=== PATIENT | female | born 1970 | race Hispanic/Latino ===

== ENCOUNTER 2023-06-20 13:02 | Emergency (ER) | payer OTHER, SELFPAY ==
[2023-06-20 13:07] VITALS: BP 137/88
--- NOTE | 2023-06-20 15:44 | ED.GENMED ---
History of Present Illness
General
Chief Complaint: Cough
Source: patient
Exam Limitations: none
Time Seen by Provider: 06/20/23 14:22
Nursing documentation reviewed up to this point in time: agreed with
Travel History
Have you had any contact with someone who has COVID-19?: No
Do you have any symptoms of coronavirus? Fever > 100 degrees, chills, cough, shortness of breath, sore throat, loss of taste or smell, muscle aches, or headache?: No
History of Present Illness
History of Present Illness:
53-year-old female with a past medical history of asthma, hypertension, migraine who presents to the emergency department for evaluation of worsening cough, rib pain, shortness of breath. Patient reports onset of symptoms 3 weeks ago she says she
had a mild cold with a cough and nasal congestion. Over the next 2 weeks she started to develop some wheezing and worsening cough. She was seen in urgent care last week and was prescribed cefuroxime 500 mg twice daily for pneumonia she says she
was also started on a Medrol Dosepak and told to take her albuterol as needed. She says that she finishes these medications tomorrow and yet despite this her cough has been worsening now productive of whitish sputum. She has had fever and chills.
She says she is having worsening shortness of breath. She says she started to have some pain in her right ribs and she is having severe coughing fits to the point of nearly passing out. Decided to come to the emergency room with symptoms not
improving. She denies any abdominal pain or diarrhea, had 1 episode of posttussive emesis but no consistent nausea or vomiting. She denies any other complaints today.
Past History
Past History
ED Past Medical History: Asthma, HTN and Other (migraines)
ED Past Surgical History: Gynecological (ectopic , D&C) and Other (oral surgery)
Social History
Tobacco: Non-smoker
Alcohol: Occasional
Drug: None
Personal:
Living: with family
Employment: Employed
Review of Systems
Review of Systems
All Other Systems: ROS reviewed and negative except as documented in HPI and ROS
Constitutional: Reports fever, fatigue and chills
EENT: Reports sore throat and runny nose
Respiratory: Reports cough and trouble breathing
Cardiac: Reports chest pain; Denies diaphoresis or palpitations
ABD/GI: Reports vomiting (1 episode of posttussive emesis); Denies abdominal pain, nausea or diarrhea
: Denies flank pain
Musculoskeletal: Reports muscle pain (Myalgias); Denies neck pain
Neurological: Denies headache, weakness or numbness
Phy Exam
Physical Exam
Physical Exam:
General: Awake, alert, oriented x3; no acute distress
Head: Normocephalic, atraumatic
Eyes: Conjunctiva normal, sclera anicteric
Throat: Airway intact, handling secretions
Neck: Trachea midline, supple without meningismus
Lungs: Clear to auscultation bilaterally, no wheezing, rales, rhonchi; frequent coughing
Heart: Regular rate and rhythm, no murmurs, gallops, or rubs; reproducible tenderness right posterior ribs
Abd: Soft, non distended, nontender
Neuro: Cranial nerves grossly intact, speech fluid
Skin: no rash
Extremities: No edema in extremities, warm and well-perfused
Scores
Heart Failure Risk
Heart Failure Risk Score: Not Applicable
Heart Score for Chest Pain Patients
STEMI patient?: Not applicable
Withdrawal Assessment of Alcohol
Withdrawal Assessment Completed?: Not applicable
Course
Orders/Labs/Results
Orders:
Orders
06/20/23 15:00
COVID-19 Antigen Urgent
Source: Nasal Swab
Complete Blood Count/With Diff Urgent
Comprehensive Metabolic Panel Urgent
Influenza A+B Rapid Molecular Urgent
BONNIE Source: Nasal Swab
Specimen Description:
CR Chest - 2 Views Urgent
Comment:
Reason For Exam: worsening cough
06/20/23 15:07
Ipratropium/Albuterol Sulfate [Duoneb] 3 ml INH R NOW STA
Vital Signs
Initial and Last Documented VS:
Initial Vital Signs
Temp Pulse Resp BP Pulse Ox
36.8 C 91 18 137/88 98
06/20/23 13:07 06/20/23 13:07 06/20/23 13:07 06/20/23 13:07 06/20/23 13:07
Last Documented Vital Signs
Temp Pulse Resp BP Pulse Ox
36.8 C 91 18 137/88 98
06/20/23 13:07 06/20/23 13:07 06/20/23 13:07 06/20/23 13:07 06/20/23 13:07
MDM/Problems Addressed
Differential Diagnosis Includes:
Viral syndrome including influenza or COVID, pneumonia, bronchitis, asthma exacerbation
MDM/Problems Addressed:
53-year-old female presents with worsening cough, shortness of breath, right rib pain over the past 3 weeks�was diagnosed with pneumonia at urgent care started on antibiotics and steroids a week ago but symptoms not improving. Fortunately her vital
signs are all normal here including a normal pulse ox 98% on room air. Her physical exam is as above. Plan to place an IV check labs including a CBC and a CMP; will check viral swabs. Check a chest x-ray. Check an EKG. Given asthma history we
will treat with a DuoNeb although no marked wheezing on exam. Monitor closely reassess after the above.
Chronic conditions affecting care:
Asthma complicates her respiratory illness
*Radiology
Radiology exam reviewed: preliminary read by ED provider and radiology read reviewed
*Pulse Oximetry
Patient hypoxic: no
*Critical Care Note
Total Time (30-74mins, 75-104mins- exclusive of procedures): Not Applicable
Data Reviewed
Source: patient
ED Attending Note
-
Portions of this chart may have been created with voice recognition software.� Occasional wrong word or��sound alike� substitutions may have occurred due to the inherent limitations of voice recognition software.
Discharge Plan
Departure
Prescriptions:
No Action
lisinopril 20 mg Tablet
20 mg PO HS
albuterol sulfate 90 mcg/actuation Hfa Aerosol Inhaler
2 puff INHALATION PRN PRN (Reason: SOB)
Referrals:
KHUSHBOO ALFARO MD [Family Provider] -
[2023-06-20 15:56] VITALS: BMI 34.6
[2023-06-20 15:59] LABS: % Basophils 0.8 % (0-2); % Eosinophils 2.4 % (0-6); % Immature Granulocytes 0.4 % (0-0.5); % Lymphocytes 34.4 % (20.5-51.1); % Monocytes 8.4 % (1.7-9.3); % Neutrophils 53.6 % (42.2-75.2); Absolute Basophils 0.1 10^3/uL (0-0.2); Absolute Eosinophils 0.2 10^3/uL (0-0.7); Absolute Lymphocytes 2.6 10^3/uL (1.2-3.4); Absolute Monocytes 0.6 10^3/uL (0.1-0.6); Hematocrit 41.9 % (37.0-47.0); Hemoglobin 14.7 g/dL (12.0-16.0); Mean Corp Hgb Conc. 35.1 g/dL (33.0-37.0); Mean Corpuscular Hgb 28.8 pg (27.0-31.0); Mean Corpuscular Volume 82.2 fL (81.0-99.0); Nucleated Red Blood Cells % 0 %; Platelet Count 202 10^3/uL (130-400); White Blood Cell Count 7.5 10^3/uL (4.8-10.8)
[2023-06-20] MEDS: DUONEB 3 ML INH (15:59)
[2023-06-20 16:05] LABS: COVID-19 Antigen Negative (Negative)
[2023-06-20 16:14] LABS: ALT (SGPT) 79 U/L (0-35); AST (SGOT) 47 U/L (14-36); Albumin 4.1 g/dl (3.5-5.0); Alkaline Phosphatase 67 U/L (38-126); Blood Urea Nitrogen 14 mg/dl (7-17); Calcium 9.5 mg/dl (8.4-10.2); Carbon Dioxide 30 mmol/L (22-30); Chloride 99 mmol/L (98-107); Estimated Creatinine Clearance > 125 ml/min; Glucose 92 mg/dl (70-99); Potassium 3.8 mmol/L (3.5-5.1); Sodium 135 mmol/L (135-145); Total Bilirubin 0.7 mg/dl (0.2-1.3); Total Protein 6.4 g/dl (6.3-8.2); eGFR > 60.00
[2023-06-20 16:20] VITALS: BP 124/84
[2023-06-20 17:00] VITALS: BP 115/77
[2023-06-20] MEDS: ZITHROMAX 500 MG PO (18:53)
[2023-06-20] MEDS: SOLU-MEDROL PF 125 MG IV (18:54)
[2023-06-20] MEDS: VENTOLIN NEBULES 2.5 MG INH (19:05)
== END 2023-06-20 19:14 | disposition home or self-care (01) ==
LOC: EMR 13:02
PROVIDERS: EMERGENCY PHYSICIAN Emergency Medicine; FAMILY PHYSICIAN General Practice
DX: J45.909 Unspecified asthma, uncomplicated (principal); I10 Essential (primary) hypertension; Z87.59 Personal history of other complications of pregnancy, childbirth and the puerperium
CPT/HCPCS: 99284; 94640; 96374; 71046; 80053; 85025; 87502; 87811; 93005

== ENCOUNTER 2023-06-21 14:34 | Emergency (ER) | payer OTHER, SELFPAY ==
[2023-06-21] VITALS (7 sets, daily range): BP systolic 116–130; BP diastolic 75–85; PULSE 81–83; BMI 34.1
--- NOTE | 2023-06-21 18:56 | ED.GENMED ---
History of Present Illness
General
Chief Complaint: Fainting/Passed Out
Time Seen by Provider: 06/21/23 18:27
Travel History
Have you had any contact with someone who has COVID-19?: No
Do you have any symptoms of coronavirus? Fever > 100 degrees, chills, cough, shortness of breath, sore throat, loss of taste or smell, muscle aches, or headache?: No
History of Present Illness
History of Present Illness:
53-year-old female presents the emergency department for evaluation of near syncopal/syncopal events occurring multiple times over the course of today. She states these occur whenever she is coughing forcefully. She was seen in this emergency
department yesterday and diagnosed with bronchitis. She is finishing a course of cefuroxime and was started on azithromycin and prednisone yesterday. She is using benzonatate without significant cough relief. No fevers or chills.
Past History
Past History
ED Past Medical History: Asthma, HTN and Other (migraines)
ED Past Surgical History: Gynecological (ectopic , D&C) and Other (oral surgery)
Social History
Tobacco: Non-smoker
Alcohol: Occasional
Drug: None
Personal:
Living: with family
Employment: Employed
Review of Systems
Review of Systems
Allergies reviewed?: Yes
All Other Systems: ROS reviewed and negative except as documented in HPI and ROS
Phy Exam
Physical Exam
Physical Exam:
GEN: Well appearing, NAD, WDWN
HEENT: Oral mucosa moist, no scleral icterus
Cardiac: Regular rate and rhythm, no murmurs
Lung: No respiratory distress, no tachypnea, lungs clear to auscultation bilaterally
MSK: No gross deformity or injuries
Skin: Good color, no pallor or jaundice, no rashes
Neuro: AO x3, moves all extremities freely
Psych: Calm, cooperative
Course
Orders/Labs/Results
Orders:
Orders
06/21/23 18:56
Electrocardiogram (*1) Urgent
Reason for Study: Syncope
EKG- Treatment ONCE
Orthostatic VS- Treatment ONCE
Albuterol Nebs [Ventolin Nebules] 2.5 mg INH R NOW STA
06/21/23 20:29
Hydrocodone Bit/Homatropine [Hycodan Syrup] 10 ml PO NOW STA
Vital Signs
Initial and Last Documented VS:
Initial Vital Signs
Temp Pulse Resp BP Pulse Ox
98.2 F 84 18 130/81 96
06/21/23 14:46 06/21/23 14:46 06/21/23 14:46 06/21/23 14:46 06/21/23 14:46
Last Documented Vital Signs
Temp Pulse Resp BP Pulse Ox
98.2 F 83 15 123/77 95
06/21/23 14:46 06/21/23 20:30 06/21/23 20:30 06/21/23 20:21 06/21/23 20:30
MDM/Problems Addressed
MDM/Problems Addressed:
PatientIs clinically well-appearing with normal vital signs. She had several reported events while coughing in the emergency department but was observed on telemetry to have no adverse cardiac events. I did personally witness 1 of these events and
the patient does not lose consciousness fully, she is likely experiencing a vasovagal near syncopal event due to coughing. Will prescribe her stronger cough suppressant, supportive care discussed
Comment
Comment:
EKG independently interpreted by me shows normal sinus rhythm with no ST changes, QTc of 444
*Critical Care Note
Total Time (30-74mins, 75-104mins- exclusive of procedures): Not Applicable
ED Attending Note
-
Portions of this chart may have been created with voice recognition software.� Occasional wrong word or��sound alike� substitutions may have occurred due to the inherent limitations of voice recognition software.
Discharge Plan
Departure
Patient Disposition: Home (Routine Discharge)
Date of Disposition: 06/21/23
Time of Disposition: 20:29
Patient with high blood pressure during this ER visit?: No
Discharge Problem:
Post-tussive syncope
Instructions: Syncope (Fainting) (DC)
Prescriptions:
New
hydrocodone-acetaminophen 5-325 mg tablet
0.5 tab PO Q8H PRN (Reason: cough) Qty: 8 0RF
No Action
lisinopril 20 mg Tablet
20 mg PO HS
albuterol sulfate 90 mcg/actuation Hfa Aerosol Inhaler
2 puff INHALATION PRN PRN (Reason: SOB)
prednisone 10 mg Tablet
See Rx Instructions .ROUTE .COMPLEX Qty: 45 0RF
Rx Instructions:
Take By Mouth:
50 mg daily x3 days, 40 mg daily x3 days,
30 mg daily x3 days, 20 mg daily x3 days,
10 mg daily x3 days
azithromycin [Zithromax] 250 mg tablet
250 mg PO DAILY Qty: 4 0RF
albuterol sulfate 2.5 mg /3 mL (0.083 %) solution for nebulization
2.5 mg inhalation Q4H PRN (Reason: shortness of breath or wheezing) Qty: 90 0RF
Referrals:
KHUSHBOO ALFARO MD [Family Provider] -
Interventions
Interventions:
*Risk Screen - Suicide Last Done: 06/21/23 18:51
*General Assessment Last Done: 06/21/23 18:53
*Neglect/Abuse Screening Last Done: 06/21/23 18:47
ED- Fall Risk Assessment Last Done: 06/21/23 19:28
*ED COVID-19 Vaccine History Last Done: 06/21/23 18:47
*Nursing Disposition Last Done: 06/21/23 20:40
ED- Cardiac Assessment Last Done: 06/21/23 18:49
ED- Neurological Assessment Last Done: 06/21/23 18:50
Discharge Date and Time
Discharge Date/Time: 06/21/23 20:47
[2023-06-21] MEDS: VENTOLIN NEBULES 2.5 MG INH (19:05)
[2023-06-21] MEDS: HYCODAN SYRUP 10 ML PO (20:36)
== END 2023-06-21 20:47 | disposition home or self-care (01) ==
LOC: EMR 14:34
PROVIDERS: EMERGENCY PHYSICIAN Emergency Medicine; FAMILY PHYSICIAN General Practice
DX: R55 Syncope and collapse (principal); R05.9 Cough, unspecified
CPT/HCPCS: 99283; 94640; 93005